=== PATIENT | male | born 1980 | race Caucasian/White ===

== ENCOUNTER 2025-09-02 10:07 | Inpatient (IN) ==
--- NOTE | 2025-09-02 10:09 | Emergency Department Note ---
History of Present Illness General Chief complaint: Hand Injury/Pain Stated complaint: SWOLLEN L HAND, WAS AT URGENT CARE YESTERDAY Time Seen by Provider: 09/02/25 10:08 History of Present Illness This is a [id number] 45-year-old male that presents to the emergency department via private vehicle with complaints of "left hand edema". Patient states that he sustained a cat bite to the palm of the left hand 5 days ago. He presented to our local express care yesterday. He was started on oral Augmentin. He presents to us today noting worsening symptoms. No fevers or chills. Tetanus vaccine is up-to-date. No concern for rabies in this scenario per patient as he notes the cats are indoors and vaccinated. Home Medications Medication Instructions Recorded Confirmed Type amoxicillin 875 mg-potassium 1 tab PO BID 10 days #20 tabs 09/01/25 09/02/25 Rx clavulanate 125 mg tablet multivitamin 1 tab PO DAILY 09/02/25 09/02/25 History vitamin C 500 mg-multivitamin with 1 tab PO DAILY 09/02/25 09/02/25 History minerals chewable tablet (Emergen-C) Allergies Allergy/AdvReac Type Severity Reaction Status Date / Time No Known Allergies Allergy Verified 09/01/25 08:15 Past Med/Surg History Problem List (Updated 09/02/25 @ 12:47 by Danilo Monet MD) HTN (hypertension) Diabetes Hyperglycemia (Acute) Leukocytosis (Acute) Elevated procalcitonin (Acute) Cat bite of left hand with infection (Acute) Social History Smoking Status: Never smoker Preferred Language: Bulgarian Feels Safe at Home: Yes Review of Systems A total of 10 systems reviewed and were otherwise negative Physical Exam Vital Signs Vital Signs - 24 hr 09/02/25 10:11 Temperature 36.6 C Temperature Source Temporal Artery Scan Pulse Rate 126 H Respiratory Rate 20 Blood Pressure 192/146 H Blood Pressure Mean 161 Pulse Oximetry 96 Oxygen Delivery Method Room Air Sepsis Recent Fever Within 48 Hours No Sepsis New/Unexplained Change in Mental Status N/A Sepsis Action Taken by Nursing No Action Required VITAL SIGNS - Vital signs and nursing notes were reviewed. Tachycardic, hypertensive, otherwise stable and afebrile. GENERAL -45-year-old male appearing his stated age who is in no acute distress. Communicates well with provider and answers questions appropriately. SKIN - Without rashes. No meningeal or petechial rash. HEAD - NC/AT. EYES - PERRL with EOMI bilaterally. Sclera anicteric. EARS - No deformities of external structures noted on gross examination bilaterally. NECK - No nuchal rigidity. LUNGS - CTA CARDIAC - RRR EXTREMITIES - No clubbing or peripheral cyanosis. There is significant erythema and edema to the left hand, palmar aspect with limited streaking tracking throughout the left upper extremity. There is a tiny bit of yellowish drainage from the puncture wound to the proximal left palmar area which is directly overlying the area of erythema and edema. No crepitus. +5/5 strength noted in UE/LE bilaterally. NEUROLOGIC - Cranial nerves II through XII grossly intact. Sensory intact throughout the left upper extremity without deficit. PSYCH -alert, oriented and pleasant on examination Course Administered Medications Heparin Sodium (Porcine) (Heparin Sod 5,000 Unit/0.5 Ml Vial) 5,000 units SQ Q8 INGRID Stop: 10/02/25 13:59 Last Admin: 09/02/25 14:44 Dose: 5,000 units Documented By: GINNA Hydralazine HCl (Hydralazine Hcl 20 Mg/Ml Vial) 10 mg IV Q8 PRN PRN Reason: sbp>185 or dbp>95 Stop: 10/02/25 12:49 Last Admin: 09/02/25 14:33 Dose: 10 mg Documented By: GINNA Sodium Chloride (Nss) 1,000 mls @ 125 mls/hr IV .Q8H INGRID Stop: 09/05/25 14:14 Last Admin: 09/02/25 14:54 Dose: 125 mls/hr Documented By: GINNA Insulin Aspart (Insulin Aspart Per Unit Charge) 0 units SC ACHS INGRID Stop: 10/02/25 14:01 Last Admin: 09/02/25 14:54 Dose: 5 units Documented By: GINNA Co-signed By: BRENDAN Discontinued Medications Amlodipine Besylate (Amlodipine Besylate 5 Mg Tab) 5 mg PO NOW ONE Stop: 09/02/25 13:46 Last Admin: 09/02/25 13:48 Dose: 5 mg Documented By: GINNA Sodium Chloride (Nss) 1,000 mls @ 999 mls/hr IV .Q1H1M ONE Stop: 09/02/25 11:20 Last Infusion: 09/02/25 12:09 Dose: Infused Documented By: Admin: 09/02/25 11:08 Dose: 999 mls/hr Documented By: GINNA Ampicillin Sodium/Sulbactam Sodium (Unasyn) 3,000 mg in 100 mls @ 200 mls/hr IV NOW STA Stop: 09/02/25 10:49 Last Infusion: 09/02/25 11:39 Dose: Infused Documented By: Admin: 09/02/25 11:08 Dose: 200 mls/hr Documented By: GINNA Insulin Glargine (Lantus Per Unit Charge) 30 units SC ONE ONE Stop: 09/02/25 14:16 Last Admin: 09/02/25 14:43 Dose: 30 units Documented By: GINNA Co-signed By: BRYAN Ioversol (Optiray 320 100ml) 94 ml IV ONCE ONE Stop: 09/02/25 11:10 Last Admin: 09/02/25 11:10 Dose: 94 ml Documented By: GERALDINE Medical Decision Making Laboratory Data 09/02/25 10:30 09/02/25 10:30 Lab Results 09/02/25 09/02/25 09/02/25 Range/Units 10:30 10:41 10:46 WBC 17.06 H (4.8-10.8) K/ul RBC 6.12 H (4.70-6.10) M/uL Hgb 16.9 (14.0-18.0) g/dl POC Hgb 17.7 (14.0-18.0) g/dl Hct 49.3 (42.0-52.0) % POC Hct 52 (42-52) % MCV 80.6 (80.0-100.0) fL MCH 27.6 (25.0-34.0) pg MCHC 34.3 (32.0-36.0) g/dL RDW Std Deviation 37.0 (36.4-46.3) fL RDW Coeff of Almita 12.9 (11.5-14.5) % Plt Count 265 (130-400) K/uL MPV 10.1 (9.4-12.4) fL Immature Gran % (Auto) 0.8 % Neut % (Auto) 80.0 % Lymph % (Auto) 10.2 % [place] % (Auto) 8.5 % Eos % (Auto) 0.1 % Baso % (Auto) 0.4 % Neut # (Auto) 13.65 H (1.40-6.50) K/uL Lymph # (Auto) 1.74 (1.20-3.40) K/uL [place] # (Auto) 1.45 H (0.11-0.59) K/uL Eos # (Auto) 0.01 (0.00-0.50) K/uL Baso # (Auto) 0.07 (0.00-0.20) K/uL Immature Gran # (Auto) 0.14 (0.01-0.20) K/uL POC Sodium 135 (135-144) mmol/L Sodium 133 L (136-145) mmol/L POC Potassium 4.3 (3.3-5.0) mmol/L Potassium 4.2 (3.5-5.1) mmol/L POC Chloride 104 (101-112) mmol/L Chloride 100 (98-107) mmol/L Carbon Dioxide 17 L (21-32) mmol/L POC Total CO2 17 L (24-31) mmol/L Anion Gap 16 H (3-11) POC Anion Gap 20.0 (16-25) mmol/L POC BUN 17 (7-18) mg/dl BUN 17 (6-23) mg/dl Creatinine 0.88 (0.6-1.4) mg/dl POC Creatinine 0.7 (0.6-1.3) mg/dl Est Cr Clr Drug Dosing 106.1 ml/min eGFR 108.74 BUN/Creatinine Ratio 19.3 (10-20) Glucose 497 H* (70-99(Fasting)) mg/dl POC Glucose 415 H* (70-99) mg/dl POC Glucose (other) 482 H* (70-99) mg/dl Lactate 2.2 H* (0.4-2.0) mmol/L Calcium 9.4 (8.6-10.3) mg/dl POC Ioniz Calcium Breana 1.16 (1.12-1.32) mmol/l Total Bilirubin 0.8 (0.2-1.0) mg/dl AST 12 L (13-39) U/L ALT 15 (7-52) U/L Alkaline Phosphatase 72 (34-104) U/L Total Protein 7.0 (6.0-8.3) gm/dl Albumin 3.9 (3.4-5.0) gm/dl Globulin 3.1 (2.5-4.0) gm/dl Albumin/Globulin Ratio 1.3 (0.9-2) Procalcitonin 0.72 H (0-0.5) ng/ml Imaging Data Radiologist's Impression: Hand CT 09/02/25 10:20 CT SCAN OF THE LEFT HAND WITH IV CONTRAST CLINICAL HISTORY: Infection. Cat bite injury. COMPARISON STUDY: No priors. TECHNIQUE: CT scan of the left hand is performed from the wrist to the fingertips following the IV administration 94 cc of Optiray 320. Images are reviewed in the axial, sagittal, and coronal planes. IV contrast was administered without complication. A dose lowering technique was utilized adhering to the principles of ALARA. Note that interpretation is suboptimal without plain film correlate. CT DOSE: 480.86 mGy.cm FINDINGS: The skeletal structures are well mineralized. No fracture is seen. There is no bony erosion or periostitis. The joint spaces are preserved. there is significant soft tissue edema and subcutaneous fluid along the dorsal aspect of the hand. There is also edema is seen involving the anterior soft tissues, greatest overlying the thenar eminence. A developing fluid collection is seen in the soft tissues overlying the thenar eminence on axial image #254. This measures approximately 5 x 1 x 3.5 cm. No additional organized fluid collection is seen. The regional musculature is normal as imaged. No soft tissue gas is identified. No radiodense foreign body is seen. IMPRESSION: 1. No acute bony abnormality is identified. 2. Diffuse soft tissue edema is typical for cellulitis. 3. There is a developing fluid collection in the subcutaneous soft tissues overlying the thenar eminence, which likely represent a developing abscess. Clinical correlation will be required. 4. No soft tissue gas is seen. ACT 112: Negative or not required by law. Electronically signed by: Long Roth M.D. 09/02/2025 12:17 PM MDM Narrative Patient was seen and evaluated as above in room A12. Review was performed of nursing notes and vital signs. I did review pertinent previous visits (recent express care visit) and patient history. After obtaining a thorough history and physical examination the above work up was performed. Patient presents with a cat bite to the left hand. It is quite infected at this time involving much of the palmar aspect of the left hand with associated edema and lymphangitic streaking of the left upper extremity. The patient started Augmentin yesterday. Based on the degree of infection, hospitalization at this time is recommended. Laboratory studies were obtained. I did order a CT of the hand. Leukocytosis 17.06. No anemia. Mild hyponatremia 133. There is an anion gap elevation at 16. Significant hyperglycemia at 497. Patient denies any personal history of diabetes. IV fluids ordered. Lactate 2.2. Procalcitonin detectable 0.72. IV Unasyn ordered. I do believe that further evaluation and management in the inpatient setting is warranted. Patient is not hypotensive at this time. No sign of severe sepsis. Hospitalist service consulted. Please refer to further documentation regarding his stay. In the evaluation and treatment of this patient the following differential diagnoses were entertained: Cellulitis, abscess, sepsis, DKA, among others Impression & Plan Cat bite of left hand with infection, Elevated procalcitonin, Leukocytosis, Hyperglycemia Discharge Plan Visit Data Chief Complaint: Hand Injury/Pain Stated Complaint: SWOLLEN L HAND, WAS AT URGENT CARE YESTERDAY ED Provider: Lane Marquez ED Midlevel Provider: Aj Hall Discharge Problem: Cat bite of left hand with infection, Elevated procalcitonin, Leukocytosis, Hyperglycemia Patient Disposition: Admitted As Inpatient Condition: Good Discharge Instructions Interventions: ED Discharge Assessment Last Done: 09/02/25 15:20
[2025-09-02 10:57] LABS: Hematocrit (blood only) 49.3 % (42.0-52.0); Hemoglobin 16.9 g/dl (14.0-18.0); Immature Granulocytes # (auto) 0.14 K/uL (0.01-0.20); Immature Granulocytes % (auto) 0.8 %; Mean Corpuscular Hemoglobin 27.6 pg (25.0-34.0); Mean Corpuscular Volume 80.6 fL (80.0-100.0); Platelet Count 265 K/uL (130-400); RDW Standard Deviation 37.0 fL (36.4-46.3); Red Blood Count 6.12 M/uL (4.70-6.10); White Blood Count 17.06 K/ul (4.8-10.8)
[2025-09-02] MEDS: SODIUM CHLORIDE 0.9% 1,000 ML IV ONE (11:08)
[2025-09-02] MEDS: AMPICILLIN/SULBACTAM SOD 3,000 MG/100 ML BAG IV STA (11:08)
[2025-09-02] MEDS: OPTIRAY 320 100ml IV ONE (11:10)
[2025-09-02] MEDS ORDERED: MoRPHine SULFATE 4 MG/ML 1 ML CARP\\VIAL IV PRN (11:25)
[2025-09-02] MEDS ORDERED: ONDANSETRON INJ 2 MG/ML 2 ML VIAL IV PRN (11:25)
[2025-09-02 11:36] LABS: Alanine Aminotransferase 15.0 U/L (7-52); Albumin Globulin Ratio 1.3 (0.9-2); Albumin Level 3.9 gm/dl (3.4-5.0); Alkaline Phosphatase 72.0 U/L (34-104); Anion Gap 16.0 (3-11); Bilirubin,Total 0.8 mg/dl (0.2-1.0); Blood Urea Nitrogen 17.0 mg/dl (6-23); Calcium 9.4 mg/dl (8.6-10.3); Carbon Dioxide 17.0 mmol/L (21-32); Chloride 100.0 mmol/L (98-107); Creatinine Clr Calc Pharmacy 106.1 ml/min; Globulin 3.1 gm/dl (2.5-4.0); Glucose 497.0 mg/dl (70-99(Fasting)); Potassium 4.2 mmol/L (3.5-5.1); Sodium 133.0 mmol/L (136-145); Total Protein 7.0 gm/dl (6.0-8.3)
--- NOTE | 2025-09-02 12:19 | CT Scan Report ---
CT SCAN OF THE LEFT HAND WITH IV CONTRAST CLINICAL HISTORY: Infection. Cat bite injury. COMPARISON STUDY: No priors. TECHNIQUE: CT scan of the left hand is performed from the wrist to the fingertips following the IV ad ministration 94 cc of Optiray 320. Images are reviewed in the axial, sagittal, and coronal planes. IV contrast was administered without complication. A dose lowering technique was utilized adhering to t he principles of ALARA. Note that interpretation is suboptimal without plain film correlate. CT DOSE: 480.86 mGy.cm FINDINGS: The skeletal structures are well mineralized. No fracture is seen. There is no bony erosion or periostitis. The joint spaces are preserved. there is significant soft tissue edema and subcutane ous fluid along the dorsal aspect of the hand. There is also edema is seen involving the anterior sof t tissues, greatest overlying the thenar eminence. A developing fluid collection is seen in the soft tissues overlying the thenar eminence on axial image #254. This measures approximately 5 x 1 x 3.5 cm . No additional organized fluid collection is seen. The regional musculature is normal as imaged. No soft tissue gas is identified. No radiodense foreign body is seen. IMPRESSION: 1. No acute bony abnormality is identified. 2. Diffuse soft tissue edema is typical for cellulitis. 3. There is a developing fluid collection in the subcutaneous soft tissues overlying the thenar emine nce, which likely represent a developing abscess. Clinical correlation will be required. 4. No soft tissue gas is seen. ACT 112: Negative or not required by law. Electronically signed by: Long Roth M.D. 09/02/2025 12:17 PM
[2025-09-02] MEDS ORDERED: PHARMACY GLYCEMIC MGMT CONSULT PRN (12:32)
--- NOTE | 2025-09-02 12:42 | History & Physical Report ---
Date of Service September 02, 2025 Assessment & Plan (1) Cat bite of left hand with infection: Plan: -unasyn -f/u cultures -morphine prn (2) Diabetes: Plan: -Pharm consult for glycemic managment (3) HTN (hypertension): Plan: -amlodipine Plan Heparin SQ for DVT px History of Present Illness Chief Complaint: Left arm swelling Primary Care Provider: NO PCP Pt is a 45 y/o male with PMH of HTN, DM who presents with left hand swelling and redness that started after his cat bit him on his palm 5 days ago. Pt went to and was given Augmentin yesterday and his symptoms have worsened. In the ER he was started on unasyn and will be admitted for further treatment of cellulitis 2nd to cat bite that failed out patient therapy. Allergies Allergy/AdvReac Type Severity Reaction Status Date / Time No Known Allergies Allergy Verified 09/01/25 08:15 Home Medications Medication Instructions Recorded Confirmed Type amoxicillin 875 mg-potassium 1 tab PO BID 10 days #20 tabs 09/01/25 09/02/25 Rx clavulanate 125 mg tablet multivitamin 1 tab PO DAILY 09/02/25 09/02/25 History vitamin C 500 mg-multivitamin with 1 tab PO DAILY 09/02/25 09/02/25 History minerals chewable tablet (Emergen-C) Past Med/Surg History Problem List (Updated 09/02/25 @ 12:47 by Danilo Monet MD) HTN (hypertension) Diabetes Hyperglycemia (Acute) Leukocytosis (Acute) Elevated procalcitonin (Acute) Cat bite of left hand with infection (Acute) Social History Smoking Status: Never smoker Preferred Language: Slovak Feels Safe at Home: Yes Review of Systems Review of Systems: CONST: Negative for fever, body aches and chills. HENT: Negative for neck pain/stiffness, headache, congestion, sore throat, swelling. EYES: Negative for discharge/pain or vision changes. RESP: Negative for cough/hemoptysis and shortness of breath. CV: Negative chest pain, difficulty breathing, palpitations. ABD: Negative pain, nausea, vomiting. : Negative increase frequency, dysuria, blood in urine or stool. MUSC: Negative for muscle aches, edema. Left hand swelling and redness SKIN: Negative rash, lesions/sores. NEURO: Negative headache, dizziness, weakness. Physical Exam Physical Exam: GENERAL APPEARANCE NAD, activity normal for age, well developed/ well nourished, no cyanosis, pallor, or diaphoresis. EYES lids/conjunctiva normal. EARS/NOSE/THROAT Mucous membranes moist, nares normal, lips/teeth normal uvula midline without oral pharyngeal erythema, exudate or swelling TMs normal bilaterally. No lymphangitis/lymphedema. HEAD/NECK normocephalic atraumatic, no facial trauma, neck is supple. RESPIRATORY respiratory effort normal, speaks in full sentences, no tripod position, no accessory muscle use. Lungs clear to auscultation without rhonchi, wheezes, rales CARDIAC Regular rate and rhythm, no edema. ABDOMINAL Soft, ND/NT. No evidence of fluid wave. No pulsatile masses on exam, rebound tenderness, Tay sign or pain over Mcburney's point. MUSCLES/EXTREMITIES No abnormal range of motion, Left had edema with castellanos erythema extending up left forearm. SKIN Warm, pink and dry. No rashes, dermatoses, petechiae or lesions. NEUROLOGICAL Speech is clear and appropriate. Normal level of consciousness. Gait and coordination are normal. 5/5 strength in all extremities. PSYCH Normal mood and affect. Judgement/competence is appropriate Results & Data Results & Data Vital Signs (Past 12 Hours) Vital Signs Temp Pulse Resp BP Pulse Ox O2 Del Method 09/02/25 12:17 115 H 09/02/25 12:00 110 H 18 183/122 H 94 09/02/25 11:30 109 H 20 170/118 H 93 09/02/25 10:11 36.6 C 126 H 20 192/146 H 96 Room Air PG Care Time/CCT Total # of Minutes Spent Total Time Spent with Patient: Total time spent is greater than 50% in coordination of care (as documented) at patient's floor/unit and/or counseling patient: Coding Level of Care Code 36739 INT INP/OBS CARE 2/55MIN Diagnoses Cat bite of left hand with infection S61.452A; L08.9; W55.01XA Diabetes E11.9 HTN (hypertension) I10
[2025-09-02] MEDS ORDERED: CARBOHYDRATES FOR HYPOGLYCEMIA PO PRN (14:30)
[2025-09-02] MEDS ORDERED: GLUCOSE 40% GEL 15 GM TUBE PO PRN (14:30)
[2025-09-02] MEDS ORDERED: GLUCAGON FOR INJ 1 MG VIAL SQ PRN (14:30)
[2025-09-02] MEDS ORDERED: GLUCOSE 10 TAB/TUBE PO PRN (14:30)
[2025-09-02] MEDS ORDERED: DEXTROSE 50% 50 ML SYRINGE IV PRN (14:30)
[2025-09-02] MEDS: LANTUS PER UNIT CHARGE SC ONE (14:43)
[2025-09-02] MEDS: HEPARIN SOD 5,000 UNIT/0.5 ML VIAL SQ SCH (14:44)
[2025-09-02] MEDS: INSULIN ASPART PER UNIT CHARGE SC SCH (14:54)
[2025-09-02] MEDS: SODIUM CHLORIDE 0.9% 1,000 ML IV SCH (14:54)
--- NOTE | 2025-09-02 15:06 | Pharmacy Report ---
Pharmacy Glycemic Short Note 2 - Date of Service September 02, 2025 - Glycemic Short BSG Results (Last 24 hours): 09/02/25 09/02/25 09/02/25 10:30 10:41 10:46 Glucose 497 H* POC Glucose 415 H* POC Glucose (other) 482 H* 09/02/25 14:42 Glucose POC Glucose 259 H POC Glucose (other) OUTPATIENT ANTIDIABETIC REGIMEN: * None * A1c pending ASSESSMENT: * 45 y/o M PMH HTN, DMII, failed outpatient Augmentin for cat bite, starting IV Unasyn, admitted for treatment of cellulitis. * Blood sugars in 400s on admission, will begin basal bolus insulin in insulin gloria patient and titrate to goal blood sugar. * Per hospitalist, patient unaware of diabetes diagnosis and not treating as outpatient. PLAN FOR INPATIENT GLYCEMIC CONTROL: * Basal insulin * Lantus 30 units SQ x1 now, then 15 units HS if BSG 180mg/dl or greater, further dosing tomorrow * Bolus insulin * NovoLog per scale ACHS or Q6hrs while NPO * Goal Range: Low 110 mg/dL - High 140 mg/dL * Correction Factor: 25 mg/dL/unit * Nutritional / Prandial insulin per carb ratio of 1 unit per 8 grams CHO consumed
[2025-09-02] MEDS: ACETAMINOPHEN 325 MG TAB PO PRN (16:33)
[2025-09-02] MEDS: AMPICILLIN/SULBACTAM SOD 3,000 MG/100 ML BAG IV SCH (17:20)
--- NOTE | 2025-09-02 19:22 | Orthopedic Consultation ---
Date of Service September 02, 2025 Assessment & Plan (1) Cat bite of left hand with infection: (2) Abscess of left hand: Plan 45-year-old male admitted with that likely abscess and progression of cellulitis infection from a cat bite 5 days ago. He failed outpatient oral antibiotic man agement. He has been on IV for less than 24 hours. Cultures taken in the emergency room with a swab through the wound. Based on the abscess and progression, he is likely best treated with surgical decompression of the space. - Continue IV antibiotics and elevation tonight. - Monitor cultures - N.p.o. at midnight for irrigation debridement surgery tomorrow. This was discussed with the patient. History of Present Illness Reason for Consultation: Left thumb bite infection Requesting Physician: . Attending Physician: Danilo Monet MD 45-year-old male admitted after progressive pain and swelling following a cat bite 5 days ago. He was treated as an outpatient with Augmentin but the infection worsen, so he came to the emergency room. He is admitted to the hospitalist and we are consulted due to a potential abscess on CT. Denies any previous history of this type of problem. Tolerable pain. Denies numbness and tingling. Concerned about the swelling in his hand and erythema advancing along his arm. Also, he was diagnosed with diabetes definitively with a hyperglycemic presentation. He has had no previous treatment for glucose control, though he said he suspected it due to family history. Allergies Allergy/AdvReac Type Severity Reaction Status Date / Time No Known Allergies Allergy Verified 09/01/25 08:15 Home Medications Medication Instructions Recorded Confirmed Type amoxicillin 875 mg-potassium 1 tab PO BID 10 days #20 tabs 09/01/25 09/02/25 Rx clavulanate 125 mg tablet multivitamin 1 tab PO DAILY 09/02/25 09/02/25 History vitamin C 500 mg-multivitamin with 1 tab PO DAILY 09/02/25 09/02/25 History minerals chewable tablet (Emergen-C) Past Med/Surg History Problem List (Updated 09/02/25 @ 19:20 by Carlos Restrepo MD) Abscess of left hand HTN (hypertension) Diabetes Hyperglycemia (Acute) Leukocytosis (Acute) Elevated procalcitonin (Acute) Cat bite of left hand with infection (Acute) Social History Smoking Status: Never smoker Hx Alcohol Use: No Hx Substance Use: No Preferred Language: Greenlandic Communication Ability: Effective Parlor Maid Required: No Beliefs That Will Affect Care: None Current Living Situation: Other Current Living Situation Comment: brother Feels Safe at Home: Yes Assistive Devices: Glasses Review of Systems All systems reviewed & are unremarkable except as noted in HPI & below. Physical Exam Left hand: Diffuse edema through the palm and into the digits. There is erythema and swelling throughout the base of the thenar musculature. He is mildly tender over these areas. Erythema extends along the thenar region and proximally across the wrist crease. There is streaking up his forearm to at least the elbow. Well-perfused extremity. DNVI. Constitutional WD/WN, vitals as above no acute distress and not intoxicated appearing Respiratory normal respiratory effort; no labored breathing Cardiovascular Extremities: normal capillary refill Results & Data Results & Data Laboratory Results Laboratory Tests 09/02/25 09/02/25 09/02/25 10:30 10:30 10:46 WBC 17.06 H Neut # (Auto) 13.65 H POC Glucose 415 H* Lactate 2.2 H* 09/02/25 09/02/25 12:46 16:35 WBC Neut # (Auto) POC Glucose 244 H Lactate 1.[address] scan of the left hand was reviewed by me. I agree with the radiologist there is a suspicious fluid collection at the base of the thenars. PG Care Time/CCT Total # of Minutes Spent Total Time Spent with Patient: Total time spent is greater than 50% in coordination of care (as documented) at patient's floor/unit and/or counseling patient: Coding Level of Care Code 98101 IN/OBS CONSULT LVL 4,60M (57 - DECISION FOR SURGERY) Diagnoses Cat bite of left hand with infection S61.452A; L08.9; W55.01XA Abscess of left hand L02.512
[2025-09-02] MEDS: LANTUS PER UNIT CHARGE SC SCH (21:00)
[2025-09-03] MEDS ORDERED: Nursing to Pharmacy Communication SCH (00:45)
[2025-09-03] MEDS: INSULIN ASPART PER UNIT CHARGE SC SCH ×2 (06:04→12:15)
[2025-09-03 07:13] LABS: Hematocrit (blood only) 42.5 % (42.0-52.0); Hemoglobin 14.4 g/dl (14.0-18.0); Mean Corpuscular Hemoglobin 27.5 pg (25.0-34.0); Mean Corpuscular Volume 81.3 fL (80.0-100.0); Platelet Count 231 K/uL (130-400); RDW Standard Deviation 37.5 fL (36.4-46.3); Red Blood Count 5.23 M/uL (4.70-6.10); White Blood Count 15.63 K/ul (4.8-10.8)
[2025-09-03] MEDS ORDERED: LIDOCAINE 2% 2 ML VIAL/AMP(20MG/ML) INFIL ONE (07:20)
[2025-09-03] MEDS ORDERED: ONDANSETRON INJ 2 MG/ML 2 ML VIAL ONE (07:20)
[2025-09-03] MEDS ORDERED: PROPOFOL IV EMULSION 10 MG/ML 20 ML VIAL IV ONE ×2 (07:20→09:12)
[2025-09-03] MEDS ORDERED: MIDAZOLAM HCL 1 MG/ML 2ML VIAL ONE (07:20)
[2025-09-03 07:41] LABS: Anion Gap 10.0 (3-11); Blood Urea Nitrogen 11.0 mg/dl (6-23); Calcium 8.1 mg/dl (8.6-10.3); Carbon Dioxide 20.0 mmol/L (21-32); Chloride 106.0 mmol/L (98-107); Creatinine Clr Calc Pharmacy 153.0 ml/min; Glucose 197.0 mg/dl (70-99(Fasting)); Potassium 3.7 mmol/L (3.5-5.1); Sodium 136.0 mmol/L (136-145)
--- NOTE | 2025-09-03 07:42 | Anesthesiology Consultation ---
Date of Service September 03, 2025 Assessment & Plan ASA ASA3 Proposed Anesthesia Anesthesia Type: General Risk / Benefits Reviewed With: PT / POA / Parent / Guardian, Accepts Plan and Informed Consent Obtained History Surgery Operation Date: 09/03/25 07:30 Proposed Procedures p Incision and Drainage Extremity - Carlos Restrepo MD Height/Weight Height: 5 ft 5 in Weight: 82.8 kg Allergies Allergy/AdvReac Type Severity Reaction Status Date / Time No Known Allergies Allergy Verified 09/01/25 08:15 Medications Home Medications Medication Instructions Recorded Confirmed Last Taken amoxicillin 875 mg-potassium 1 tab PO BID 10 days #20 tabs 09/01/25 09/02/25 09/02/25 clavulanate 125 mg tablet multivitamin 1 tab PO DAILY 09/02/25 09/02/25 Unknown vitamin C 500 mg-multivitamin with 1 tab PO DAILY 09/02/25 09/02/25 09/02/25 minerals chewable tablet (Emergen-C) Active Medications Generic Name Dose Route Start Last Admin Trade Name Freq PRN Reason Stop Dose Admin Acetaminophen 650 mg 09/02/25 11:25 09/02/25 20:58 Acetaminophen 325 Mg Tab PO 10/02/25 11:24 650 mg Q4H PRN Administration pain/fever Heparin Sodium (Porcine) 5,000 units 09/02/25 14:00 09/03/25 05:43 Heparin Sod 5,000 Unit/0.5 Ml Vial SQ 10/02/25 13:59 Not Given Q8 INGRID Hydralazine HCl 10 mg 09/02/25 12:50 09/02/25 22:49 Hydralazine Hcl 20 Mg/Ml Vial IV 10/02/25 12:49 10 mg Q8 PRN Administration sbp>185 or dbp>95 Ampicillin Sodium/Sulbactam Sodium 3,000 mg in 100 mls @ 200 mls/hr 09/02/25 17:00 09/03/25 06:09 Unasyn IV 09/09/25 16:59 Infused Q6H INGRID Infusion Sodium Chloride 1,000 mls @ 125 mls/hr 09/02/25 14:15 09/03/25 06:05 Nss IV 09/05/25 14:14 125 mls/hr .Q8H INGRID Administration Insulin Aspart 0 units 09/03/25 06:00 09/03/25 06:04 Insulin Aspart Per Unit Charge [place] 10/03/25 05:59 3 units Q6 INGRID Administration Insulin Glargine 0 units 09/02/25 21:00 09/02/25 21:00 Lantus Per Unit Charge [place] 10/02/25 20:59 15 units HS INGRID Administration Protocol NPO Date Last Intake of Fluids: 09/02/25 Time Last Intake of Fluids: 23:59 Date Last Intake of Solids: 09/02/25 Time Last Intake of Solids: 23:59 Exercise / Class Metabolic Activity II 4-5 Yardwork/Stairs/Walk up hill Past Anesthesia History No Hx of Anesthesia Complications and No Family Hx of Anesthesia Complications History of PONV No Hx of PONV and No Hx of Motion Sickness Social History Smoking Status: Never smoker Hx Alcohol Use: No Hx Substance Use: No Review of Systems denies fever/cough/ colds/ chest pain/ SOB/ IGGY denies IGGY Physical Exam Vital Signs Last Vital Signs Temp 36.7 C 09/03/25 07:28 Pulse 109 H 09/03/25 07:28 Resp 18 09/03/25 07:28 BP 179/109 H 09/03/25 07:28 Pulse Ox 97 09/03/25 07:28 O2 Del Method Room Air 09/03/25 07:28 ENMT Mouth: no TMJ abnormality and no dentition abnormality Thyromental Distance: > or= 3.5 Finger Breadths Mallampati Class: II Neck neck extension not limited Respiratory normal respiratory effort; no respiratory distress Auscultation: lungs clear to auscultation bilaterally Cardiovascular Rate/Rhythm: regular rate and regular rhythm Neurologic moves all extremities Psychiatric Orientation: alert and oriented x 3 Testing Laboratory Results 09/03/25 06:31 09/03/25 06:31 09/02/25 10:30 Gram Stain - Final Hand,Left 09/03/25 09/02/25 05:48 20:06 POC Glucose 190 H 245 H
[2025-09-03] MEDS ORDERED: HYDROmorphone INJ 1 MG/ML SYRINGE IV PRN (07:43)
[2025-09-03] MEDS ORDERED: ONDANSETRON INJ 2 MG/ML 2 ML VIAL IV PRN (07:43)
[2025-09-03] MEDS ORDERED: ATROPINE SULFATE 0.1 MG/ML 10ML SYR IV PRN (07:43)
--- NOTE | 2025-09-03 07:46 | History & Physical Bridge Note ---
Date of Service September 03, 2025 History & Physical Bridge Note I have examined the patient, reviewed the History & Physical and in the interval since the performance of the History & Physical I have noted the following changes of clinical significance: no changes noted. Reviewed the plan for LEFT HAND WOUND IRRIGATION AND DEBRIDEMENT. Informed Consent documented.
[2025-09-03] MEDS ORDERED: ROCURONIUM BROMIDE 10 MG/ML 5 ML VIAL IV ONE (08:01)
[2025-09-03 09:00] LABS: Hemoglobin A1C 11.8 % (4.5-5.6)
--- NOTE | 2025-09-03 09:28 | Operative Report ---
PG Post Operative Report Pre & Post Diagnosis Operation Date: 09/03/25 07:30 Pre-Op Diagnosis: Abscess of left hand Post-Op Diagnosis: Abscess of left hand I identified the patient and participated in the time-out.: Yes Procedure Operation Date: 09/03/25 07:30 Actual Procedures p Incision and Drainage Left Thumb(Left) - Carlos Restrepo MD Surgeon Carlos Restrepo MD Aerodynamics Teacher none Estimated Blood Loss 25 Findings See Below Punctate wound at the base of the thenar eminence with purulent drainage. This area was extended sharply and a subcutaneous abscess space was discovered along the radial border of the thenar eminence and down into the first webspace. It was extrafascial or subcutaneous. Minimal necrotic debris. [place] drain left in place Specimens 2 swab cultures Anesthesia Type General Complications none Disposition Accompanied Patient To Recovery: No Disposition: Recovery Room Indications 45-year-old male admitted with progressive hand pain and swelling and erythema 5 days after a cat bite. Advanced imaging and exam are consistent with a developing abscess. Surgical decompression was recommended. I reviewed the risks and benefits and alternatives in detail. Patient was agreeable to surgery, so informed consent was obtained today. Description of Procedure On the day of surgery, the patient was greeted in the preoperative holding area. The informed consent was reviewed and confirmed by myself and the patient. The patient identified the surgical site and was marked by me. The patient was then turned over to anesthesia. He was taken to the operating room and left supine in his hospital bed. Anesthesia was induced, and the airway was secured. He was positioned toward the side of the bed to allow access of a roll up hand table. The limb was then prepped using a tourniquet on the forearm. Barrier drape was applied. There was abundant purulent drainage to the punctate wound which was decompressed manually with gauze. The forearm and hand were then cleansed with an alcohol solution. The hand was then prepped and draped as usual for hand surgery using ChloraPrep. Surgical timeout was called by the circulating nurse, and verified by all present. Antibiotics have been on his schedule. The limb was then elevated and the tourniquet was inflated to 250 mmHg for less than 30 minutes. There was an isolated punctate wound with drainage. A 15 blade was used to extend this by 2 cm in either direction. Hemostat was introduced and the pocket was widened. There is immediate reflux of abundance of purulent drainage. 2 swab cultures were taken from the deep recesses of the abscess space. Lap sponges were then carefully placed up into the space using a hemostat for mechanical debridement. Once space traversed along the superficial aspect of the thenar muscles, and there was a secondary space that traversed more ulnarly towards the first webspace. Both the spaces were extrafascial. Self-retaining retractor was placed to allow visualization deeper into the pocket. I sharply debrided some devitalized and necrotic soft tissue. This was minimal. Large curette was then used to mechanically debride the abscess murray which remove fibrinous debris from the subcutaneous space. Once healthy muscle tissue of the thenar group was visible, we began a thorough irrigation. 2 L of normal saline were infused to the area using bulb syringe. Fresh towels and drapes were placed. Fresh instruments were used to inspect the wound. Soft tissues appeared to be clean and healthy. A small [place] drain was then placed into the deep recess along the thenar space. This projected out of the inferior apex of the wound. The skin was approximated using 3-0 nylon sutures with well spaced vertical mattress stitches. The hand had a better appearance and seem to be decompressed of edema and erythema. The wound was dressed with sterile Xeroform, plain gauze, ABD and web roll contained by Gilbert wrap. The patient tolerated the procedure well, was extubated from his LMA without complication in the operating room, and was transported to the recovery area in stable condition. Disposition: He will remain inpatient for antibiotics. The culture should be followed to tailor the antibiotics specifically. Will leave the dressing in place through tomorrow and then remove the [place] drain. Will follow closely. Expect 24-36 hours minimal for inpatient antibiotic therapy. I attest to the content of the Intraoperative Record and any orders documented therein. Any exceptions are noted below.
[2025-09-03] MEDS ORDERED: KETOROLAC TROMETHAMINE 15 MG/ML VIAL IV PRN (09:55)
--- NOTE | 2025-09-03 10:08 | Anesthesiology Progress Note ---
Date of Service September 03, 2025 Anesthesia Post Procedure Vital Signs Vital Signs: Temp Pulse Pulse Pulse Resp BP BP 09/03/25 09:40 88 14 137/88 09/03/25 09:30 89 21 140/89 09/03/25 09:20 82 21 133/69 09/03/25 09:10 87 12 129/85 09/03/25 09:04 36.3 C L 82 20 107/76 09/03/25 07:28 36.7 C 109 H 18 179/109 H 09/03/25 00:04 106 H 18 151/84 H 09/02/25 22:38 37.1 C 109 H 18 159/97 H 09/02/25 20:00 38.1 C H 09/02/25 19:40 114 H 18 166/101 H 09/02/25 19:30 09/02/25 15:45 37.7 C H 113 H 16 136/109 H 09/02/25 15:00 110 H 22 165/104 H 09/02/25 14:30 108 H 24 177/132 H 09/02/25 14:00 107 H 22 181/128 H 09/02/25 13:00 104 H 23 163/106 H 09/02/25 12:17 115 H 09/02/25 12:00 110 H 18 183/122 H 09/02/25 11:30 109 H 20 170/118 H 09/02/25 10:11 36.6 C 126 H 20 192/146 H Pulse Ox O2 Del Method O2 Flow Rate 09/03/25 09:40 97 Nasal Cannula 2 09/03/25 09:30 95 Nasal Cannula 2 09/03/25 09:20 96 Oxymask 3 09/03/25 09:10 94 Oxymask 6 09/03/25 09:04 94 Oxymask 6 09/03/25 07:28 97 Room Air 09/03/25 00:04 93 Room Air 09/02/25 22:38 93 Room Air 09/02/25 20:00 09/02/25 19:40 93 Room Air 09/02/25 19:30 Room Air 09/02/25 15:45 95 Room Air 09/02/25 15:00 95 09/02/25 14:30 95 09/02/25 14:00 95 09/02/25 13:00 09/02/25 12:17 10/18/25 12:00 94 09/02/25 11:30 93 09/02/25 10:11 96 Room Air Pain Intensity Left Hand: Pain Intensity: 5 Transfer of Care Handoff Completed per policy Notes Mental Status: alert / awake / arousable and participated in evaluation Patient Amnestic to Procedure: Yes Nausea / Vomiting: adequately controlled Pain: adequately controlled Airway Patency, RR, SpO2: stable & adequate BP & HR: stable & adequate Hydration State: stable & adequate Anesthetic Complications: no major complications apparent and Pt Satisfied with anesthetic care
--- NOTE | 2025-09-03 11:24 | Hospitalist Progress Note ---
Date of Service September 03, 2025 Assessment & Plan (1) Cat bite of left hand with infection: Plan: -unasyn -ortho consult appreciated -s/p left hand I&D -f/u cultures -morphine prn (2) Diabetes: Plan: -Pharm consult for glycemic management -new diagnosis -nurse informatics educator -will need supplies prior to d/c (3) HTN (hypertension): Plan: -new diagnosis -amlodipine -lisinopril Plan Heparin SQ for DVT px Admission and Anticipated Discharge Date Admission Date: September 02, 2025 Subjective Pt seen post of from left hand I&D, resting in bed. Pain under control. Review of Systems Review of Systems: CONST: Negative for fever, body aches and chills. HENT: Negative for neck pain/stiffness, headache, congestion, sore throat, swelling. EYES: Negative for discharge/pain or vision changes. RESP: Negative for cough/hemoptysis and shortness of breath. CV: Negative chest pain, difficulty breathing, palpitations. ABD: Negative pain, nausea, vomiting. : Negative increase frequency, dysuria, blood in urine or stool. MUSC: Negative for muscle aches, edema. Left hand swelling and redness SKIN: Negative rash, lesions/sores. NEURO: Negative headache, dizziness, weakness. Physical Exam Physical Exam: GENERAL APPEARANCE NAD, activity normal for age, well developed/ well nourished, no cyanosis, pallor, or diaphoresis. EYES lids/conjunctiva normal. EARS/NOSE/THROAT Mucous membranes moist, nares normal, lips/teeth normal uvula midline without oral pharyngeal erythema, exudate or swelling TMs normal bilaterally. No lymphangitis/lymphedema. HEAD/NECK normocephalic atraumatic, no facial trauma, neck is supple. RESPIRATORY respiratory effort normal, speaks in full sentences, no tripod position, no accessory muscle use. Lungs clear to auscultation without rhonchi, wheezes, rales CARDIAC Regular rate and rhythm, no edema. ABDOMINAL Soft, ND/NT. No evidence of fluid wave. No pulsatile masses on exam, rebound tenderness, Tay sign or pain over Mcburney's point. MUSCLES/EXTREMITIES No abnormal range of motion, Left had edema with castellanos erythema extending up left forearm. SKIN Warm, pink and dry. No rashes, dermatoses, petechiae or lesions. NEUROLOGICAL Speech is clear and appropriate. Normal level of consciousness. Gait and coordination are normal. 5/5 strength in all extremities. PSYCH Normal mood and affect. Judgement/competence is appropriate Results & Data Results & Data Vital Signs (Past 12 Hours) Vital Signs Temp Pulse Pulse Resp BP Pulse Ox O2 Del Method 09/03/25 10:58 36.8 C 104 H 18 163/101 H 92 Room Air 09/03/25 10:31 37.0 C 94 H 18 161/97 H 95 Room Air 09/03/25 10:00 37.0 C 91 H 16 150/90 H 93 Room Air 09/03/25 09:40 36.4 C L 88 14 137/88 97 Nasal Cannula 09/03/25 09:30 89 21 140/89 95 Nasal Cannula 09/03/25 09:20 82 21 133/69 96 Oxymask 09/03/25 09:10 87 12 129/85 94 Oxymask 09/03/25 09:04 36.3 C L 82 20 107/76 94 Oxymask 09/03/25 07:28 36.7 C 109 H 18 179/109 H 97 Room Air 09/03/25 00:04 106 H 18 151/84 H 93 Room Air O2 Flow Rate 09/03/25 10:58 09/03/25 10:31 09/03/25 10:00 09/03/25 09:40 2 09/03/25 09:30 2 09/03/25 09:20 3 09/03/25 09:10 6 09/03/25 09:04 6 09/03/25 07:28 09/03/25 00:04 PG Care Time/CCT Total # of Minutes Spent Total Time Spent with Patient: Total time spent is greater than 50% in coordination of care (as documented) at patient's floor/unit and/or counseling patient: Coding Level of Care Code 11226 SUB INP/OBS CARE 2/35MIN Diagnoses Cat bite of left hand with infection S61.452A; L08.9; W55.01XA Diabetes E11.9 HTN (hypertension) I10
[2025-09-03] MEDS: LANTUS PER UNIT CHARGE SC ONE (12:15)
[2025-09-04 07:12] LABS: Hematocrit (blood only) 39.4 % (42.0-52.0); Hemoglobin 13.4 g/dl (14.0-18.0); Mean Corpuscular Hemoglobin 27.7 pg (25.0-34.0); Mean Corpuscular Volume 81.4 fL (80.0-100.0); Platelet Count 227 K/uL (130-400); RDW Standard Deviation 37.6 fL (36.4-46.3); Red Blood Count 4.84 M/uL (4.70-6.10); White Blood Count 11.79 K/ul (4.8-10.8)
[2025-09-04 07:42] LABS: Anion Gap 8.0 (3-11); Blood Urea Nitrogen 8.0 mg/dl (6-23); Calcium 7.9 mg/dl (8.6-10.3); Carbon Dioxide 24.0 mmol/L (21-32); Chloride 104.0 mmol/L (98-107); Creatinine Clr Calc Pharmacy 135.3 ml/min; Glucose 127.0 mg/dl (70-99(Fasting)); Potassium 3.3 mmol/L (3.5-5.1); Sodium 136.0 mmol/L (136-145)
--- NOTE | 2025-09-04 08:28 | Pharmacy Report ---
Pharmacy Glycemic Short Note 2 - Date of Service September 04, 2025 - Glycemic Short BSG Results (Last 24 hours): 09/03/25 09/03/25 09/03/25 09:14 11:33 16:45 Glucose POC Glucose 176 H 249 H 195 H 09/03/25 09/04/25 09/04/25 20:42 06:46 07:38 Glucose 127 H POC Glucose 202 H 122 H OUTPATIENT ANTIDIABETIC REGIMEN: * None * A1c pending ASSESSMENT: 09/04 * Patient required a total of 71 units of insulin yesterday, of which 45 units were basal insulin * Fasting BSG much improved today 122 mg/dL - not quite at steady state with current basal dose, therefore will scale back on basal for today and trial Lantus 35 units daily * No change to CF/CR 09/02 * 45 y/o M PMH HTN, DMII, failed outpatient Augmentin for cat bite, starting IV Unasyn, admitted for treatment of cellulitis. * Blood sugars in 400s on admission, will begin basal bolus insulin in insulin gloria patient and titrate to goal blood sugar. * Per hospitalist, patient unaware of diabetes diagnosis and not treating as outpatient. PLAN FOR INPATIENT GLYCEMIC CONTROL: * Basal insulin * Lantus 35 units once daily * Bolus insulin * NovoLog per scale ACHS or Q6hrs while NPO * Goal Range: Low 110 mg/dL - High 140 mg/dL * Correction Factor: 20 mg/dL/unit * Nutritional / Prandial insulin per carb ratio of 1 unit per 7 grams CHO consumed
[2025-09-04] MEDS: LANTUS PER UNIT CHARGE SC SCH (08:42)
[2025-09-04] MEDS ORDERED: NON-FORMULARY MEDICATION (Vitamin C-Multivitamin-Mineral [Emergen-C] 500 mg Tablet,Chewabl PO SCH (09:00)
--- NOTE | 2025-09-04 09:33 | Orthopedic Progress Note ---
Date of Service September 04, 2025 Assessment & Plan (1) Abscess of left hand: (2) Cat bite of left hand with infection: Plan Continue inpatient antibiotics per ID recommendation. Continue to elevate the left hand. Daily dressing changes. Continue pain control as needed Continue DVT prophylaxis Disposition: Remain inpatient for IV antibiotic treatment. Follow-up: 2 weeks in office with [facility] team Remainder care per primary team Subjective Patient was seen at bedside this morning. He is doing well and is in good spirits. He has his hand elevated on pillows beside him in bed. He states that his pain has all but subsided. If he holds his hand up below heart level he can feel throbbing in his fingers. Review of Systems All systems reviewed & are unremarkable except as noted in HPI & below. Physical Exam Left upper extremity: Postsurgical bandage and Chaim drain wered removed. Approximately 3 cc of serosanguineous fluid drained into the bandage. There is erythema and swelling over the thenar musculature. Patient still has some tenderness over this area. 1 to 2 cc of serosanguineous fluid was expressed from the base of the wound. There is mild erythema of the forearm but no streaking. Patient is able to flex and extend his fingers without pain. Results & Data Results & Data Laboratory Results . Diagnostic Findings . PG Care Time/CCT Total # of Minutes Spent Total Time Spent with Patient: Total time spent is greater than 50% in coordination of care (as documented) at patient's floor/unit and/or counseling patient: Supervising Physician Co-Signing Physician Notes Patient seen and evaluated with the physician ward assistant. I agree with his note. Still having some seropurulent drainage with massage. Needs continued elevation and IV antibiotic until those intraoperative cultures return. Recommend continued admission for IV antibiotics until further progress and culture will reevaluate tomorrow. The dressing can now be removed on as-needed basis. Should be changed at least daily for the drainage. Coding Level of Care Code 73891 Post Operative Follow-Up Diagnoses Abscess of left hand L02.512 Cat bite of left hand with infection S61.452A; L08.9; W55.01XA
--- NOTE | 2025-09-04 10:11 | Infectious Disease Consult ---
Date of Consultation September 04, 2025 Assessment & Plan (1) Abscess of left hand: (2) Cat bite of left hand with infection: (3) Diabetes: Plan Problems: #L hand abscess after cat bite #Diabetes Micro: 09/03 OR #2 L thumb abscess: pending. GS rare GPCs, rare GNRs 09/03 OR #1 L thumb abscess: pending. GS rare GNRs 09/02 BCx x2: NGTD 09/02 L hand wound cx: Prevotella melaninogenica, plus low counts of probable skin mario. GS no org Abx: Amp-sulbactam 09/02 - present 45 yo M with HTN, DM who presented on 09/02 with L hand swelling and redness that began after his cat bit him on his palm 5 days prior, found to have L hand abscess s/p I&D (09/03). He went to on 09/01 and was prescribed Augmentin, but his symptoms worsened. On presentation, he was initially afebrile (later became febrile to 38.1), HR 126. Labs showed WBC 17.06, lactate 2.2. CT hand with IV contrast showed no acute bony abnormality, diffuse soft tissue edema, developing fluid collection in subcutaneous tissues overlying thenar eminence likely representing developing abscess. A culture was taken from the L hand wound in the ED and blood cultures obtained. Started on Unasyn. Ortho was consulted and took the pt to the OR on 09/03 for I&D. Per operative note, there was a punctate wound at the base of the thenar eminence with purulent drainage, and a subcutaneous abscess space was discovered along the radial border of the thenar eminence and down into the first webspace, was extrafascial or subcutaneous. Drain left in place. Initial wound culture with Prevotella and skin mario. OR cultures pending. WBC downtrending. Recommendations: - Continue Unasyn - Follow-up L hand OR cultures - Anticipate transition to PO antibiotics on discharge, likely amox/clav Will continue to follow Consultation Information Consultation was provided via telemedicine using two-way real-time interactive telecommunication between the patient and the telemedicine provider. For the duration of the visit, the provider was performing the assessment from a different facility than the patient. This includesuse of bluetooth stethoscope forauscultationperformed by the telepresenter that the telemedicine provider can hear if described in the physical exam. [employer] Dist[employer] contact information: Please call [facility] [phone]. (Phone Number For Physician Use Only) After establishing a telemedicine visit, patient was: Patient was verified with two unique identifiers, Patient/authorized rep acknowledged consent and understanding and Gave permission to continue telehealth session Time Spent with Patient: Initial => 55 min History of Present Illness Reason for Consultation: Cat bite, L hand abscess Attending Physician: Preethi Whittington MD History of Present Illness 45 yo M with HTN, DM who presented on 09/02 with L hand swelling and redness that began after his cat bit him on his palm 5 days prior. He went to on 09/01 and was prescribed Augmentin, but his symptoms have worsened. On presentation, he was initially afebrile (later became febrile to 38.1), HR 126. Labs showed WBC 17.06, lactate 2.2. CT hand with IV contrast showed no acute bony abnormality, diffuse soft tissue edema, developing fluid collection in subcutaneous tissues overlying thenar eminence likely representing developing abscess. A culture was taken from the L hand wound in the ED and blood cultures obtained. Started on Unasyn. Ortho was consulted and took the pt to the OR on 09/03 for I&D. Per operative note, there was a punctate wound at the base of the thenar eminence with purulent drainage, and a subcutaneous abscess space was discovered along the radial border of the thenar eminence and down into the first webspace, was extrafascial or subcutaneous. Drain left in place. OR cultures pending. WBC downtrending. Allergies Allergy/AdvReac Type Severity Reaction Status Date / Time No Known Allergies Allergy Verified 09/01/25 08:15 Home Medications Medication Instructions Recorded Confirmed Type amoxicillin 875 mg-potassium 1 tab PO BID 10 days #20 tabs 09/01/25 09/02/25 Rx clavulanate 125 mg tablet multivitamin 1 tab PO DAILY 09/02/25 09/02/25 History vitamin C 500 mg-multivitamin with 1 tab PO DAILY 09/02/25 09/02/25 History minerals chewable tablet (Emergen-C) Patient History Social History Smoking Status: Never smoker Hx Alcohol Use: No Hx Substance Use: No Preferred Language: Pakistani Communication Ability: Effective Veterinarian Poultry Required: No Beliefs That Will Affect Care: None Current Living Situation: Other Current Living Situation Comment: brother Feels Safe at Home: Yes Assistive Devices: Glasses Review of System A complete ROS was performed and is negative except as mentioned in the HPI. Physical Exam Physical Exam: GEN: Well-appearing, in NAD. RESP: No increased work of breathing EXT: L hand in dressing, able to move fingers normally SKIN: No erythema extending outside of L hand dressing NEURO: Alert and oriented. Answers all questions appropriately. Speech not slurred. PSYCH: Normal mood, affect appropriate. Results & Data Vital Signs (Past 12 Hours) Vital Signs Temp Pulse Resp BP Pulse Ox O2 Del Method 09/04/25 07:03 36.7 C 97 H 18 148/89 H 93 Room Air 09/04/25 03:04 37 C 90 14 128/72 93 Room Air 09/03/25 22:51 37.3 C 100 H 18 132/83 93 Room Air
--- NOTE | 2025-09-04 13:09 | Hospitalist Progress Note ---
Date of Service September 04, 2025 Assessment & Plan (1) Cat bite of left hand with infection: (2) Diabetes: (3) HTN (hypertension): Plan Yuri is a 45M without significant past medical history who presents after a cat bite. Was seen in [facility] care 09/01 which was ~ 4 days after the bite, started on Augmentin but presented to the ED with worsening. #Cat bite Ortho consulted - s/p washout 09/03, plan for continued inpatient stay for IV abx Continue Unasyn, leukocytosis decreasing ID consulted - follow cultures, suspect PO abx on discharge So far one wound culture positive for Prevotella melaninogenica #DMT2 New diagnosis - A1c 11.8 Pharmacy glycemic consult simulation educator #HTN - new diagnosis this admission started on Amlodopine and lisinopril BP elevated but improved Dispo: continued inpatient stay, has been established with [place] PCP after discharge (09/12) Heparin SQ for DVT px Admission and Anticipated Discharge Date Admission Date: September 02, 2025 Subjective Patient seen lying in bed - has been seen by ortho this morning, aware plan is for continued IV abx pain is improved has not been to a doctor in years Review of Systems Review of Systems: All systems reviewed & are unremarkable except as noted in Subjective Physical Exam Physical Exam: General: NAD, VS as above Resp: normal respiratory effort, lungs clear to auscultation CV: RRR, no murmur, Abd: normal bowel sounds, non tender, soft Extremities: Moves all extremities, left hand with dressing in place, mild fing er swelling, cap refill is appropiate an fingers are warm Neuro: A&O x3, Skin: intact, no lesions noted Results & Data Results & Data Vital Signs (Past 12 Hours) Vital Signs Temp Pulse Resp BP Pulse Ox O2 Del Method 09/04/25 11:00 98.1 F 98 H 16 148/89 H 95 Room Air 09/04/25 07:03 98.1 F 97 H 18 148/89 H 93 Room Air 09/04/25 03:04 98.6 F 90 14 128/72 93 Room Air PG Care Time/CCT Total # of Minutes Spent Total Time Spent with Patient: Total time spent is greater than 50% in coordination of care (as documented) at patient's floor/unit and/or counseling patient: Coding Level of Care Code 62024 SUB INP/OBS CARE 2/35MIN Diagnoses Cat bite of left hand with infection S61.452A; L08.9; W55.01XA Diabetes E11.9 HTN (hypertension) I10
[2025-09-04] MEDS: POTASSIUM CHLORIDE CRTAB 20 MEQ TABCR PO STA (13:46)
[2025-09-04 13:54] VITALS: RESP 18
[2025-09-05 07:11] LABS: Hematocrit (blood only) 41.6 % (42.0-52.0); Hemoglobin 14.0 g/dl (14.0-18.0); Mean Corpuscular Hemoglobin 27.1 pg (25.0-34.0); Mean Corpuscular Volume 80.6 fL (80.0-100.0); Platelet Count 257 K/uL (130-400); RDW Standard Deviation 37.2 fL (36.4-46.3); Red Blood Count 5.16 M/uL (4.70-6.10); White Blood Count 8.35 K/ul (4.8-10.8)
[2025-09-05 07:27] LABS: Anion Gap 8.0 (3-11); Blood Urea Nitrogen 7.0 mg/dl (6-23); Calcium 8.4 mg/dl (8.6-10.3); Carbon Dioxide 24.0 mmol/L (21-32); Chloride 107.0 mmol/L (98-107); Creatinine Clr Calc Pharmacy 143.6 ml/min; Glucose 109.0 mg/dl (70-99(Fasting)); Potassium 3.3 mmol/L (3.5-5.1); Sodium 139.0 mmol/L (136-145)
[2025-09-05 08:15] VITALS: PULSE 94; TEMP 98.1; O2SAT 94
[2025-09-05] MEDS: MAGNESIUM SULFATE / D5W 1 GM/100 ML BAG IV ONE (09:09)
[2025-09-05] MEDS: POTASSIUM CHLORIDE CRTAB 20 MEQ TABCR PO STA (09:09)
--- NOTE | 2025-09-05 10:46 | Orthopedic Progress Note ---
Date of Service September 05, 2025 Assessment & Plan (1) Abscess of left hand: (2) Cat bite of left hand with infection: Plan Continue inpatient antibiotics per ID recommendation. Continue to elevate the left hand. Dressing changes PRN Continue pain control as needed Continue DVT prophylaxis Disposition: home Follow-up: 2 weeks in office with [facility] team Remainder care per primary team, will follow peripherally Subjective .Active Problems: S/p L thumb I&D POD 3 45 y/o male s/p L thumb I&D. Doing well overall, pain managed and improved function. Denies fever/chills, chest pain/SOB, nausea/vomiting. Otherwise no co mplaints. Review of Systems All systems reviewed & are unremarkable except as noted in HPI & below. Physical Exam Left upper extremity: Postsurgical bandage was not removed. Minimal tenderness of the thenar eminence. Improved opposition ROM of the thumb. No erythema or streaking of the forearm, no tenderness. No pain with AROM flexion/extension of wrist. Patient is able to flex and extend his fingers without pain. Sensation intact radial/median/ulnar nerve distributions. Brisk capillary refill. Results & Data Results & Data Laboratory Results . Diagnostic Findings . PG Care Time/CCT Total # of Minutes Spent Total Time Spent with Patient: Total time spent is greater than 50% in coordination of care (as documented) at patient's floor/unit and/or counseling patient: Coding Level of Care Code 80546 Post Operative Follow-Up Diagnoses Abscess of left hand L02.512 Cat bite of left hand with infection S61.452A; L08.9; W55.01XA
--- NOTE | 2025-09-05 12:04 | Infectious Disease Progress Nt ---
Date of Service September 05, 2025 Assessment & Plan (1) Abscess of left hand: (2) Cat bite of left hand with infection: (3) Diabetes: Plan Problems: #L hand abscess after cat bite #Diabetes Micro: 09/03 OR #2 L thumb abscess: Prevotella melaninogenica, plus low counts of probable oral mario. GS rare GPCs, rare GNRs 09/03 OR #1 L thumb abscess: Prevotella melaninogenica, plus low counts of probable oral mario. GS rare GNRs 09/02 BCx x2: NGTD 09/02 L hand wound cx: Prevotella melaninogenica, plus low counts of probable skin mario. GS no org Abx: Amp-sulbactam 09/02 - present 45 yo M with HTN, DM who presented on 09/02 with L hand swelling and redness that began after his cat bit him on his palm 5 days prior, found to have L hand abscess s/p I&D (09/03). He went to on 09/01 and was prescribed Augmentin, but his symptoms worsened. On presentation, he was initially afebrile (later became febrile to 38.1), HR 126. Labs showed WBC 17.06, lactate 2.2. CT hand with IV contrast showed no acute bony abnormality, diffuse soft tissue edema, developing fluid collection in subcutaneous tissues overlying thenar eminence likely representing developing abscess. A culture was taken from the L hand wound in the ED and blood cultures obtained. Started on Unasyn. Ortho was consulted and took the pt to the OR on 09/03 for I&D. Per operative note, there was a punctate wound at the base of the thenar eminence with purulent drainage, and a subcutaneous abscess space was discovered along the radial border of the thenar eminence and down into the first webspace, was extrafascial or subcutaneous. Drain left in place. Initial wound culture with Prevotella and skin mario. OR cultures growing Prevotella and low counts of probable ora mario. Leukocytosis resolved. Recommendations: - Can transition to amox/clav 875 mg PO BID x 7 days Will sign off. Admission and Anticipated Discharge Date Admission Date: September 02, 2025 Subjective This patient recommendation is based on a telemedicine consult request which was completed asynchronously through chart review and information provided by the primary physician. The patient was not seen or examined today. The evaluation is consultative in nature and all patient care and treatment decisions can either be accepted or rejected by the patient's primary hospital-based treating physician using their own independent medical judgment for their patient. Time Spent Reviewing Chart: 11 - 20 minutes No acute events Leukocytosis resolved Results & Data Vital Signs (Past 12 Hours) Vital Signs Temp Pulse Resp BP Pulse Ox O2 Del Method 09/05/25 08:14 36.7 C 94 H 18 162/106 H 94 Room Air
[2025-09-05 12:08] VITALS: BP 130/86
--- NOTE | 2025-09-05 12:17 | Discharge Summary ---
Discharge Summary Date of Service September 05, 2025 Principal Dx & Hospital Course #1 = Principal Diagnosis (1) Cat bite of left hand with infection: (2) Diabetes: (3) HTN (hypertension): Plan #Cat bite Yuri is a 45M without significant past medical history who presents after a cat bite. Was seen in [facility] care 09/01 which was ~ 4 days after the bite, started on Augmentin but presented to the ED with worsening. Ortho consulted - s/p washout 09/03, follow up in 2 weeks. Recieved IV unasyn, will great improvement. Has remained afebrile, leukocytosis decreasing. ID consulted - recommend augmentin BID x 7 days. Cultures only growing Prevotella melaninogenica so far. Blood cultures and final wound cultures pending. #DMT2 New diagnosis this admission - A1c 11.8. clinical trial educator provided thorough education to patient. Plan for Lantus 35 units daily, and metfomin. Will start with Metformin 500mg ER daily, titrating up to 500mg BID. #HTN - new diagnosis this admission started on Amlodipine 10mg and lisinopril 10mg. New rx sent. BP slightly elevated elevated but improved Dispo: discharge to home today, PCP follow up next week case discussed with ID and clinical trial educator Admission HPI Per Admitting Provider Pt is a 45 y/o male with PMH of HTN, DM who presents with left hand swelling and redness that started after his cat bit him on his palm 5 days ago. Pt went to and was given Augmentin yesterday and his symptoms have worsened. In the ER he was started on unasyn and will be admitted for further treatment of cellulitis 2nd to cat bite that failed out patient therapy. Discharge Exam General: NAD, VS as above Resp: normal respiratory effort, lungs clear to auscultation CV: RRR, no murmur, Abd: normal bowel sounds, non tender, soft Extremities: Moves all extremities, left hand with dressing in place, mild finger swelling, cap refill is appropiate an fingers are warm, finger movement has improved Neuro: A&O x3, Skin: intact, no lesions noted Discharge Plan Discharge Items Patient Disposition: Home - Self-Care Reason For Visit: CAT BITE Discharge Diagnosis: Cat Bite, Diabetes and HTN Condition on Discharge: Good Activity: Per Instructions section Non-emergency contact: Primary Care Provider and Surgeon Call non-emergency contact if: you have any medication questions, your symptoms worsen, your pain is not controlled and your temperature is above 101 Follow-up/Referrals: Carlos Restrepo MD [Surgeon] - 09/20/25 2:00 pm (follow up in 2 weeks ) Heather Welsh MD [Physician] - 09/12/25 4:00 pm (Est care/ follow up ) Diet: Carb Consistent or DM2 Addtl Attending Provider Instructions: Mr. Alfaro, You were hospitalized after having worsening infection from a cat bite. You were started on IV antibiotics and taken to the OR on 09/[address] Restrepo to have this washed out. You have more specific instructions from orthopedics below. You will be discharged on Augmentin twice a day for 7 days. Please take the first dose tonight, 09/05. Make sure you are taking this with food, As it can cause an upset stomach. Pain control: Continue to take Tylenol and ibuprofen as needed [id number] I have sent in A few oxycodone as needed for breakthrough pain. you are also diagnosed with diabetes during this admission With your hemoglobin A1c being 11.8. This reports the average of your blood sugar over the last 90 days, noting that your blood sugar has probably been greater than 250 most of the time. You have underwent education with the clinical trial educator and will be started on Lantus once a day, injectable insulin and a titrating dose of metformin. For the metformin: The prescription will be written for 2 tabs twice a day. - Start with 1 tab in the morning for 3 days if you experience no side effects then you can move onto the next step. - Then move onto 1 tab twice a day, if no side effects after 3 days moved to the next stop 2 tabs in the morning and 1 tab at night x 3 days and then if no symptoms - 2 tabs in the morning and 2 tabs at night most common side effects with metformin are GI side effectsdiarrhea and loose stools. If you experience side effects at any point of your titration, you should go back down on dosing and continue with that dosing until you are able to tolerate the medication for 3 days in a row without side effects. You were also diagnosed with high blood pressure and started on 2 medications amlodipine and lisinopril. These have been sent to your pharmacy, follow the instructions on the bottle but you will take both of these medications in the morning. I have also sent in a blood pressure monitor to your pharmacy, this may or may not be covered by your insurance. If it is not covered by your insurance please purchase one [id number]. Would recommend that you take your blood pressure once a day, sitting with your legs and arms uncrossed, not talking. Please take this at different times of the day and keep a record of your blood pressures and take it to your PCP appointment next week. Activity: You can do normal everyday activities as your body allows. Take rest breaks if you feel tired. Do not overexert. Stop activity if you have pain, shortness of breath or feel dizzy. Follow-up appointments: Make an appointment with your primary care physician within one week of discharge. A copy of this summary will be sent to them. Every time you see your primary care physician, or any other doctor, bring your medication list, and a list of questions. CONTACT YOUR PRIMARY CARE PROVIDER if you experience any of the following: Shortness of breath or difficulty breathing Fevers or chills Feeling tired with normal activity or experiencing dizziness or fainting Difficulty following your treatment plan, or difficulty taking medications CALL 911 OR GO TO THE EMERGENCY DEPARTMENT if you experience any of the following: Severe abdominal pain or nausea/vomiting Severe chest pain, or chest pain that radiates (moves) to your jaw or arm Sudden, severe shortness of breath or difficulty breathing Thank you for allowing us to participate in your care. Addtl Stock Sorter Provider Instructions: General Orthopedic Discharge Instructions Activity: As tolerated Medications: 1. Narcotic You will likely be sent home from the hospital with a prescription for the narcotic pain medication. Take it as needed. Side effects most commonly include nausea and constipation 2. Antibiotic per ID teamrecommendations 3. Resume previous home medications unless otherwise instructed Dressing Care: If there is a soft dressing in place then leave the dressing intact for 5 days. On the you may remove the dressing and leave the stitches open to air or cover them with band-aids. Keep the incision clean and dry If there is a hard splint then leave it in place until your follow-up visit in 2 weeks Showering: If you have a soft dressing you may shower right after the surgery but do not get the dressing wet. After the dressing is removed on the 5th day then you can get the stitches wet in the shower, but do not soak or scrub them. Let the soapy shower water run over the stitches and pat them dry. If you have a hard splint, cover it in a plastic bag and keep it dry. Do not remove it until the follow up appointment. Things To Watch For: 1. Drainage from the incision site that occurs more than one week after your surgery. 2. Increased redness at the incision site. 3. Fever above 102 degrees Fahrenheit. 4. Unusual chest pain or shortness of breath. 5. Call [facility] at with any of the above problems. Follow-Up Visit: Please make arrangements to follow-up with Dr. Restrepo team approximately 2 weeks after your day of surgery for progress check and staple/suture removal. If you have any questions call Pending Studies at Discharge: Yes ( wound culture, blood cultures) Stand-Alone Forms: My [facility], Work/School Release, Smoking Cessation Medications and DC Order Prescriptions: New amlodipine 5 mg Tablet 10 mg PO QAM Qty: 30 0RF lisinopril 10 mg Tablet 10 mg PO QAM Qty: 30 0RF oxycodone 5 mg Tablet 5 mg PO Q4H PRN (Reason: pain) Qty: 10 0RF insulin glargine [Lantus Solostar U-100 Insulin] 100 unit/mL (3 mL) insulin pen 35 unit subcut QAM Qty: 15 1RF (DME) pen needle, diabetic [Pen Needle] 32 gauge x 5/32" needle See Rx Instructions .Route Qty: 100 0RF Rx Instructions: to inject 1x/day metformin 500 mg tablet extended release 24 hr 1,000 mg PO BID 30 Days Qty: 120 0RF Rx Instructions: titrate dose as directed. amoxicillin-pot clavulanate 875-125 mg tablet 1 tab PO BID Qty: 14 0RF Continued multivitamin Tablet 1 tab PO DAILY Emergen-C 500 mg Tablet,Chewable 1 tab PO DAILY Discontinued amoxicillin-pot clavulanate 875-125 mg tablet 1 tab PO BID 10 Days Qty: 20 0RF Discharge Orders: Discharge Order (Routine); Ordered 09/05/25 Ordered By: Kassie Keating Admission Data Admit Date/Time: 09/02/25 11:26 Attending Provider: Preethi Whittington Admit Provider: Danilo Monet Primary Care Provider: PCP,NO Other Providers: Gelacio Holder; Carlos Restrepo Other Interventions: Discharge Summary Assessment (RN) Last Done: 09/05/25 13:19 Hospital Stay Data Consultations 09/02/25 11:01 ED Decision to Admit Stat 09/02/25 11:27 Consult Infectious Diseases Routine 09/02/25 15:48 Consult Orthopedic Surgery Routine Procedures Performed Operation Date: 09/03/25 07:30 Actual Procedures p Incision and Drainage Left Thumb(Left) - Carlos Restrepo MD Diagnostic Imagining Performed Hand CT 09/02/25 10:20 CT SCAN OF THE LEFT HAND WITH IV CONTRAST CLINICAL HISTORY: Infection. Cat bite injury. COMPARISON STUDY: No priors. TECHNIQUE: CT scan of the left hand is performed from the wrist to the fingertips following the IV administration 94 cc of Optiray 320. Images are reviewed in the axial, sagittal, and coronal planes. IV contrast was administered without complication. A dose lowering technique was utilized adhering to the principles of ALARA. Note that interpretation is suboptimal without plain film correlate. CT DOSE: 480.86 mGy.cm FINDINGS: The skeletal structures are well mineralized. No fracture is seen. There is no bony erosion or periostitis. The joint spaces are preserved. there is significant soft tissue edema and subcutaneous fluid along the dorsal aspect of the hand. There is also edema is seen involving the anterior soft tissues, greatest overlying the thenar eminence. A developing fluid collection is seen in the soft tissues overlying the thenar eminence on axial image #254. This measures approximately 5 x 1 x 3.5 cm. No additional organized fluid collection is seen. The regional musculature is normal as imaged. No soft tissue gas is identified. No radiodense foreign body is seen. IMPRESSION: 1. No acute bony abnormality is identified. 2. Diffuse soft tissue edema is typical for cellulitis. 3. There is a developing fluid collection in the subcutaneous soft tissues overlying the thenar eminence, which likely represent a developing abscess. Clinical correlation will be required. 4. No soft tissue gas is seen. ACT 112: Negative or not required by law. Electronically signed by: Long Roth M.D. 09/02/2025 12:17 PM Pending Results Patient Have Any Pending Studies at Discharge: Yes ( wound culture, blood cultures) Discharge Instructions Given to Patient (Per Discharging Provider) Mr. Alfaro, You were hospitalized after having worsening infection from a cat bite. You were started on IV antibiotics and taken to the OR on 09/[address] Restrepo to have this washed out. You have more specific instructions from orthopedics below. You will be discharged on Augmentin twice a day for 7 days. Please take the first dose tonight, 09/05. Make sure you are taking this with food, As it can cause an upset stomach. Pain control: Continue to take Tylenol and ibuprofen as needed [id number] I have sent in A few oxycodone as needed for breakthrough pain. you are also diagnosed with diabetes during this admission With your hemoglobin A1c being 11.8. This reports the average of your blood sugar over the last 90 days, noting that your blood sugar has probably been greater than 250 most of the time. You have underwent education with the clinical trial educator and will be started on Lantus once a day, injectable insulin and a titrating dose of metformin. For the metformin: The prescription will be written for 2 tabs twice a day. - Start with 1 tab in the morning for 3 days if you experience no side effects then you can move onto the next step. - Then move onto 1 tab twice a day, if no side effects after 3 days moved to the next stop 2 tabs in the morning and 1 tab at night x 3 days and then if no symptoms - 2 tabs in the morning and 2 tabs at night most common side effects with metformin are GI side effectsdiarrhea and loose stools. If you experience side effects at any point of your titration, you should go back down on dosing and continue with that dosing until you are able to tolerate the medication for 3 days in a row without side effects. You were also diagnosed with high blood pressure and started on 2 medicationsamlodipine and lisinopril. These have been sent to your pharmacy, follow the instructions on the bottle but you will take both of these medications in the morning. I have also sent in a blood pressure monitor to your pharmacy, this may or may not be covered by your insurance. If it is not covered by your insurance please purchase one [id number]. Would recommend that you take your blood pressure once a day, sitting with your legs and arms uncrossed, not talking. Please take this at different times of the day and keep a record of your blood pressures and take it to your PCP appointment next week. Activity: You can do normal everyday activities as your body allows. Take rest breaks if you feel tired. Do not overexert. Stop activity if you have pain, shortness of breath or feel dizzy. Follow-up appointments: Make an appointment with your primary care physician within one week of discharge. A copy of this summary will be sent to them. Every time you see your primary care physician, or any other doctor, bring your medication list, and a list of questions. CONTACT YOUR PRIMARY CARE PROVIDER if you experience any of the following: Shortness of breath or difficulty breathing Fevers or chills Feeling tired with normal activity or experiencing dizziness or fainting Difficulty following your treatment plan, or difficulty taking medications CALL 911 OR GO TO THE EMERGENCY DEPARTMENT if you experience any of the following: Severe abdominal pain or nausea/vomiting Severe chest pain, or chest pain that radiates (moves) to your jaw or arm Sudden, severe shortness of breath or difficulty breathing Thank you for allowing us to participate in your care. Total Time Total Time Spent Total Time Spent (In Minutes): Time spent day of discharge 36 minutes including direct patient care, medication reconciliation, documentation, review of labs and images, and coordination of care. Coding Level of Care Code 06018 INP/OBS DISCH >30 MIN Diagnoses Cat bite of left hand with infection S61.452A; L08.9; W55.01XA Diabetes E11.9 HTN (hypertension) I10
== END 2025-09-05 14:31 | disposition home or self-care (01) | DRG 580 ==
LOC: ED 10:07 → SUATTDRO 11:26 → EDINP 11:26 → 3W 15:34
DX: E11.9 Type 2 diabetes mellitus without complications; B96.89 Other specified bacterial agents as the cause of diseases classified elsewhere; S61.452A Open bite of left hand, initial encounter; L03.114 Cellulitis of left upper limb; W55.01XA Bitten by cat, initial encounter; L02.512 Cutaneous abscess of left hand; I10 Essential (primary) hypertension